=== PATIENT | male | born 1950 | race Caucasian/White ===

== ENCOUNTER → 2017-03-14 | Day surgery (SDC) | payer MEDICARE ==
[~2017-03-14] VITALS: Ht 180.3 cm; Wt 82.0 kg
[~2017-03-14] MED LIST: ACETAMINOPHEN 1000 MG/100 ML VIAL IV ONE; AMPICILLIN-SULBACTAM INJ 3 GM VIAL ONE; DEXAMETHASONE SOD PHOS 4 MG/ML VIAL ONE; LACTATED RINGER'S 1000 ML INJ 1,000 ML ONE; MIDAZOLAM HCL 2 MG/2 ML VIAL ONE; MORPHINE SULFATE 4 MG/ML INJ ONE; PROPOFOL 200 MG/20 ML AMP IV ONE; SODIUM CHLORIDE 0.9% INJ 100 ML ONE
[2017-03-14 07:50] VITALS: BP 155/90; PULSE 71; RESP 16; TEMP 97.4; O2SAT 99
[2017-03-14] MEDS: BACITRACIN TOP OINT 15 GM TUBE ONE ×3 (09:57→11:20)
[2017-03-14] MEDS: LIDOCAINE 1%/EPINEPHrine 1:100,000 SOLN 30 ML VIAL ONE ×3 (09:57→11:20)
[2017-03-14] MEDS: OXYMETAZOLINE HCL 0.05% 15 ML NASAL SPRAY ONE ×2 (09:57→11:18)
[2017-03-14 11:57] VITALS: BP 138/72; PULSE 55; RESP 16; TEMP 97.8; O2SAT 98
--- NOTE | 2017-03-14 13:25 | EKG ---
Date Performed: 03/14/2017 Time Performed: 08:07:00 PTAGE: 67 years EKG: Sinus arrhythmia. Normal ECG NO PREVIOUS TRACING DOCTOR: Jj Aguilar Interpretating Date/Time 03/14/2017 13:22:21
--- NOTE | 2017-03-15 11:20 | MP ---
cc: JENNIFER KAUR M.D. DATE OF SURGERY: 03/14/[address] Jennifer Kaur PREOPERATIVE DIAGNOSIS 1. Nasal airway obstruction. 2. Nasal septal deviation. 3. Hypertrophy of inferior turbinates. POSTOPERATIVE DIAGNOSIS 1. Nasal airway obstruction. 2. Nasal septal deviation. 3. Hypertrophy of inferior turbinates. OPERATION PERFORMED 1. Open repair nasal septal fracture. 2. Bilateral submucosal resection of inferior turbinates. INDICATIONS The indications are documented in the history and physical. DESCRIPTION OF OPERATION The patient was taken to OR #2 and placed in the supine position. Following induction of general anesthesia and intubation the nose was packed bilaterally with cotton pledgets saturated in 0.05% oxymetazoline and was injected bilaterally into the septal mucosa and inferior turbinates using a total of 90 mL of 1% Xylocaine with epinephrine 1:100,000. He was then prepped and draped for surgery. The packing was removed and a hemitransfixion incision was made in the left nasal vestibule and through this incision the mucosa of septum was elevated bilaterally as far as the junction of the bony cartilaginous septum. This revealed the quadrangular cartilage which had evidence of severe deviation to the left inferiorly and to the right posteriorly with evidence of old septal fracture with numerous fragments of comminuted fracture long healed. A cumulative area of 2 x 2.5 cm was removed preserving 1.5 cm dorsal and caudal cartilaginous struts. Following this the mucosa was elevated from the bony septum and the maxillary crest and the bony septum was removed with Irving-Murguia forceps and Mandeep septal forceps. The maxillary crest was removed using a 6 mm Latoya chisel and preserving the anterior nasal spine. The incision was then closed using a running suture of 4-0 chromic and the mucosal layers of septum were approximated to each other with a quilting stitch of 4-0 plain gut. The inferior turbinates were then fractured out medially and stab incisions were made along their inferior surfaces. Through these incisions the submucosal soft tissue was reduced using a curet and preserving the conchal bone. The incisions were then cauterized using the suction Bovie at 35 forbes. The remnants of the inferior turbinates were then re-lateralized to the lateral nasal wall. The nose was then packed with Merocel tampons coated in bacitracin ointment and the procedure was terminated. The patient was reversed from anesthesia and taken to Recovery in good condition. There were no complications. Blood loss was 80 mL. MD ISABELA Gibbs/MAN /1:01 PM /11:13 AM
== END | disposition home or self-care (01) ==
LOC: PHSDC 07:36
PROVIDERS: ATTEND Otolaryngology
DX: J98.8 Other specified respiratory disorders (principal); J34.2 Deviated nasal septum; J34.3 Hypertrophy of nasal turbinates; Z01.810 Encounter for preprocedural cardiovascular examination
CPT/HCPCS: 00160; 21336; 30140; 93005; J0131; J0295; J1100; J2250; J2270; J3010; J7120